=== PATIENT | male | born 1975 | race Hispanic/Latino ===

== ENCOUNTER 2018-04-24 13:09 | Emergency (ER) | payer BC ==
--- NOTE | 2018-04-24 15:27 | EDPHYS ---
Physician Documentation [facility] Name: Campbell Leyva Age: 42 yrs Sex: Male : 1975 Arrival Date: 04/24/2018 Time: 13:15 Bed 12 Private MD: ED Physician Jimmy Beard HPI: 04/24 15:21 This 42 yrs old Male presents to ER via Ambulatory with complaints of Ear Pain.cp 15:21 The patient presents with pain. The complaints affect the right ear. Onset: The cp symptoms/episode began/occurred 1 month(s) ago. Associated signs and symptoms: Pertinent negatives: cough, fever, rhinorrhea, sinus trouble, sore throat. Severity of symptoms: in the emergency department the symptoms are unchanged despite home interventions. Historical: - Allergies: 13:43 No Known Allergies; aj - Home Meds: 13:43 None [Active]; aj - PMHx: 13:43 None; aj - PSHx: 13:43 None; aj - Immunization history:: Adult Immunizations up to date. - Social history:: Smoking status: Patient uses tobacco products, smokes one-half pack cigarettes per day. - Ebola Screening: : Patient negative for fever greater than or equal to 101.5 degrees Fahrenheit, and additional compatible Ebola Virus Disease symptoms Patient denies exposure to infectious person Patient denies travel to an Ebola-affected area in the 21 days before illness onset No symptoms or risks identified at this time. ROS: 15:22 Eyes: Negative for injury, pain, redness, and discharge. cp 15:22 Constitutional: Negative for body aches, chills, fever, poor PO intake. 15:22 ENT: Positive for ear pain, Negative for drainage from ear(s), sore throat, difficulty swallowing, difficulty handling secretions. 15:22 Respiratory: Negative for cough, shortness of breath, wheezing. 15:22 Abdomen/GI: Negative for abdominal pain, nausea, vomiting, and diarrhea. 15:22 Skin: Negative for cellulitis, rash. 15:22 Neuro: Negative for headache. 15:22 All other systems are negative. Exam: 15:23 Head/Face: Normocephalic, atraumatic. cp 15:23 Constitutional: The patient appears in no acute distress, alert, awake, non-toxic, well developed, well nourished. 15:23 Eyes: Periorbital structures: appear normal, Conjunctiva: normal, no exudate, no injection, Lids and lashes: appear normal, bilaterally. 15:23 ENT: External ear(s): are unremarkable, Ear canal(s): are normal, clear, TM's: bulging, is not appreciated, bilaterally, erythema, that is mild, on the right, Examination of the other ear shows no obvious abnormality, Nose: Mouth: Lips: moist, Oral mucosa: pink and intact, moist, Posterior pharynx: is normal, airway is patent, no erythema, no exudate, Voice: is normal. 15:23 Neck: ROM/movement: is normal, is supple, without pain, no range of motions limitations, no nuchal rigidity, Lymph nodes: no appreciated lymphadenopathy. 15:23 Chest/axilla: Inspection: normal, Palpation: is normal, no crepitus, no tenderness. 15:23 Cardiovascular: Rate: normal, Rhythm: regular. cp 15:23 Respiratory: the patient does not display signs of respiratory distress, Respirations: normal, no use of accessory muscles, no retractions, no splinting, no tachypnea, labored breathing, is not present, Breath sounds: are clear throughout. 15:23 Abdomen/GI: Exam negative for discomfort, distension, guarding, Inspection: abdomen appears normal. 15:23 Skin: cellulitis, is not appreciated, no rash present. Vital Signs: 13:43 BP 143 / 96; Pulse 92; Resp 17; Temp 97.9; Pulse Ox 98% on R/A; Weight 73.94 kg; Height aj 5 ft. 6 in. (167.64 cm); 13:43 Body Mass Index 26.31 (73.94 kg, 167.64 cm) aj MDM: 15:12 Patient medically screened. cp 15:23 Differential diagnosis: otitis media, otitis externa, ruptured TM, foreign body, acute cp otalgia, cerumen impaction. 15:25 Data reviewed: vital signs, nurses notes, and as a result, I will discharge patient. cp 15:25 Counseling: I had a detailed discussion with the patient and/or guardian regarding: the cp historical points, exam findings, and any diagnostic results supporting the discharge/admit diagnosis, to return to the emergency department if symptoms worsen or persist or if there are any questions or concerns that arise at home. Administered Medications: No medications were administered Disposition: 04/25 13:11 Co-signature as Attending Physician, Jimmy Beard MD I agree with the assessment and kdr plan of care. Disposition: 04/24/18 15:26 Discharged to Home. Impression: Otitis media, unspecified, right ear. - Condition is Stable. - Discharge Instructions: Otitis Media, Adult. - Prescriptions for Amoxicillin 875 mg Oral Tablet - take 1 tablet by ORAL route every 12 hours for 10 days; 20 tablet. Medrol (Ian) 4 mg Oral Tablets, Dose Pack - take 1 tablet by ORAL route as directed - follow package instructions; 1 packet. - Medication Reconciliation Form, Thank You Letter, Antibiotic Education, Prescription Opioid Use form. - Follow up: Tana Meeks MD; When: 1 week; Reason: symptoms continue. - Problem is new. - Symptoms are unchanged. Signatures: Katharine Azul RN RN aj Rittger, Kevin, MD MD kdr Ritika Randhawa RN RN iw Joe Osorio PA PA cp Corrections: (The following items were deleted from the chart) 04/24 15:37 15:26 04/24/2018 15:26 Discharged to Home. Impression: Otitis media, unspecified, right iw ear. Condition is Stable. Forms are Medication Reconciliation Form, Thank You Letter, Antibiotic Education, Prescription Opioid Use. Follow up: Tana Meeks; When: 1 week; Reason: symptoms continue. Problem is new. Symptoms are unchanged. cp
--- NOTE | 2018-04-24 15:27 | ER ---
Nurse's Notes [facility] Name: Campbell Leyva Age: 42 yrs Sex: Male : 1975 Arrival Date: 04/24/2018 Time: 13:15 Bed 12 Private MD: Diagnosis: Otitis media, unspecified, right ear Presentation: 04/24 13:41 Presenting complaint: Patient states: Right ear pain for 1 months. Patient has been aj unable to schedule appointment with ENT R/T work schedule. Transition of care: patient was not received from another setting of care. Onset of symptoms was March 25, 2018. Risk Assessment: Do you want to hurt yourself or someone else? Patient reports no desire to harm self or others. Initial Sepsis Screen: Does the patient meet any 2 criteria? No. Patient's initial sepsis screen is negative. Does the patient have a suspected source of infection? No. Patient's initial sepsis screen is negative. Care prior to arrival: None. 13:41 Method Of Arrival: Ambulatory 13:41 Acuity: MARIANA 5 Triage Assessment: 13:43 General: Appears in no apparent distress. comfortable, Behavior is calm, cooperative, aj appropriate for age. Pain: Complains of pain in right ear. EENT: Reports pain in right ear. Neuro: Level of Consciousness is awake, alert, obeys commands, Oriented to person, place, time, situation, Appropriate for age. Respiratory: Airway is patent Respiratory effort is even, unlabored, Respiratory pattern is regular, symmetrical. Derm: Skin is intact, is healthy with good turgor, Skin is pink, warm \T\ dry. normal. Historical: - Allergies: 13:43 No Known Allergies; aj - Home Meds: 13:43 None [Active]; aj - PMHx: 13:43 None; aj - PSHx: 13:43 None; aj - Immunization history:: Adult Immunizations up to date. - Social history:: Smoking status: Patient uses tobacco products, smokes one-half pack cigarettes per day. - Ebola Screening: : Patient negative for fever greater than or equal to 101.5 degrees Fahrenheit, and additional compatible Ebola Virus Disease symptoms Patient denies exposure to infectious person Patient denies travel to an Ebola-affected area in the 21 days before illness onset No symptoms or risks identified at this time. Screenin:36 Abuse screen: Denies threats or abuse. Denies injuries from another. Nutritional iw screening: No deficits noted. Tuberculosis screening: No symptoms or risk factors identified. Fall Risk None identified. Assessment: 15:00 General: Appears in no apparent distress. Behavior is calm, cooperative. iw 15:00 Pain: Complains of pain in right ear. Neuro: Level of Consciousness is awake, alert, iw obeys commands, Oriented to person, place, time. Cardiovascular: Patient's skin is warm and dry. Respiratory: Reports Respiratory effort is even, unlabored, Respiratory pattern is regular. Derm: Skin is intact, is healthy with good turgor. Vital Signs: 13:43 BP 143 / 96; Pulse 92; Resp 17; Temp 97.9; Pulse Ox 98% on R/A; Weight 73.94 kg; Height aj 5 ft. 6 in. (167.64 cm); 13:43 Body Mass Index 26.31 (73.94 kg, 167.64 cm) ED Course: 13:15 Patient arrived in ED. rg4 13:42 Triage completed. aj 13:43 Arm band placed on left wrist. Patient placed in an exam room. aj 15:00 Patient has correct armband on for positive identification. iw 15:05 Ritika Randhawa, RN is Primary Nurse. iw 15:11 Joe Osorio PA is PHCP. cp 15:11 Jimmy Beard MD is Attending Physician. cp 15:25 Tana Meeks MD is Referral Physician. cp 15:36 No provider procedures requiring assistance completed. Patient did not have IV access iw during this emergency room visit. Administered Medications: No medications were administered Outcome: 15:26 Discharge ordered by MD. cp 15:36 Discharged to home ambulatory. iw 15:36 Condition: good 15:36 Discharge instructions given to patient, Instructed on discharge instructions, follow up and referral plans. medication usage, Demonstrated understanding of instructions, follow-up care, medications, Prescriptions given X 2. 15:37 Patient left the ED. iw Signatures: Katharine Azul RN RN Ritika Mayo, RN RN Joe Armendariz PA PA cp Garcia, Rubi rg4 Corrections: (The following items were deleted from the chart) 19:29 19:28 General: Appears in no apparent distress. iw iw
== END 2018-04-24 15:37 | disposition home or self-care (01) ==
LOC: ER 13:09
DX: H66.91 Otitis media, unspecified, right ear (principal); F17.210 Nicotine dependence, cigarettes, uncomplicated
CPT/HCPCS: 99282